=== PATIENT | male | born 1965 | race Caucasian/White ===

== ENCOUNTER 2024-04-12 18:11 | Emergency (ER) | payer SELFPAY ==
[2024-04-12 18:12] VITALS: BP 92/53; PULSE 73; RESP 18; TEMP 36.7; O2SAT 96; BMI 23.6
--- NOTE | 2024-04-12 18:21 | W.ED.DIZZY ---
HPI - Dizziness General: Chief Complaint: Dizziness Stated Complaint: hyperglycemia Time Seen by Provider: 04/12/24 18:12 Source: EMS Mode of arrival: EMS Limitations: no limitations History of Present Illness: HPI Narrative: 59-year-old male who states he had some hyperglycemia was brought in by EMS. I had seen patient in the priest and talk to him just for a few seconds he is very upset he states that he is homeless and feels that he is not being treated appropriately he was very upset when I first started talking to him did try to get him to stay but he signed out AMA Related Data Allergies Allergy/AdvReac Type Severity Reaction Status Date / Time No Known Allergies Allergy Verified 04/12/24 18:16 Review of Systems General: Reports: Other Physical Exam Const: COMMON NORMALS: no acute distress and patient oriented x3 Chest: COMMONS NORMALS: normal inspection of the chest Resp: COMMON NORMALS: normal respiratory effort Extremity: COMMON NORMALS: normal to inspection Neuro: COMMON NORMALS: patient oriented x3 and moves all extremities Course Vital Signs: Vital signs: Vital Signs Temperature 98.0 F 04/12/24 18:12 Pulse Rate 73 04/12/24 18:12 Respiratory Rate 18 04/12/24 18:12 Blood Pressure 92/53 04/12/24 18:12 Pulse Oximetry 96 04/12/24 18:12 Oxygen Delivery Me thod Room Air 04/12/24 18:12 MDM - Dizziness Medical Decision Making Patient presents here with hyperglycemia patient was very upset when I went to speak to him he already wanted to sign out AMA I was not able to convince him to stay and he did sign out AGAINST MEDICAL ADVICE Medical Records I reviewed the patient's medical records. 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
--- NOTE | 2024-04-12 18:22 | PC.NURSE ---
PATIENT WALKS OUT OF ROOM TOWARDS AMBULANCE BAY AND STATES THAT THE NURSES WON'T TREAT ME LIKE GARBAGE. I WANT TO LEAVE NURSE EXPLAINED THAT SHE WAS TRIAGING PATIENT AND HAS TO ASK A SPECIFIC SET OF QUESTIONS. PATIENT STATES THAT HE WONT BE TREATED DIFFERENTLY BECAUSE I'M HOMELESS. NURSE STATES THAT HE WAS TREATED NO DIFFERENTLY THAN ANY OTHER PATIENT IN THE FACILITY. 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 PATIENT ESCORTED OUT AFTER SIGNING OUT AMA.
== END 2024-04-12 18:25 | disposition left against medical advice (07) ==
LOC: ER 18:24
PROVIDERS: Emergency Provider Emergency Medicine
DX: R73.9 Hyperglycemia, unspecified (principal); Z53.29 Procedure and treatment not carried out because of patient's decision for other reasons; Z59.00 Homelessness unspecified
CPT/HCPCS: 99281